=== PATIENT | female | born 1975 | race Caucasian/White ===

== ENCOUNTER 2016-12-26 14:52 | Emergency (ER) | payer OTHER ==
[~2016-12-26] VITALS: Ht 167.6 cm; Wt 142.4 kg
[~2016-12-26 14:52] MED LIST: NORCO 5-325 TA1 EACH PO
[2016-12-26] MEDS ORDERED: PERCOCET 5-3251 EACH PO (16:43)
== END 2016-12-26 17:28 | disposition home or self-care (01) ==
LOC: ED 14:52
DX: T25.032A Burn of unspecified degree of left toe(s) (nail), initial encounter (principal); T31.0 Burns involving less than 10% of body surface; X08.8XXA Exposure to other specified smoke, fire and flames, initial encounter; Y93.G3 Activity, cooking and baking; Y92.000 Kitchen of unspecified non-institutional (private) residence as the place of occurrence of the external cause
CPT/HCPCS: 16000; 90471; 90715; 99283